=== PATIENT | female | born 1960 | race Caucasian/White ===

== ENCOUNTER 2022-10-05 13:38 | Emergency (ER) | payer BC ==
--- OUTSIDE RECORDS SUMMARY | 2022-10-05 13:43 | XMS REPORT | Continuity of Care Document ---
:1960 Author Organization [facility] Address [address] [place] [address] Care Team Providers Name Role Phone Sonu BERMAN, Carin Jackman Primary Care Physician [phone] GAURAV ASHLEY Attending Clinician Unavailable MAGDY LEWIS Attending Clinician Unavailable [id number] Attending Clinician Unavailable Carin Ziegler MD Attending Clinician [phone] CARIN ZIEGLER Attending Clinician Unavailable CONFERENCE, BDC Attending Clinician Unavailable ROOSEVELT MCLAUGHLIN Attending Clinician Unavailable Payers Payer Name Policy Type Policy Number Effective Date Expiration Date [facility] 2 [id number] 2021 00:00:00 Problems Condition Condition Condition Status Onset Resolution Last Treating Co mments Source Name Details Category Date Date Treatment Clinician Date Morphea Morphea Disease Active 2021-10 Dorothy 2-06 Seybold 00:00: - 00 Externa l Mild Mild Disease Active Dorothy intermitte intermitte 5-18 Se ybold nt asthma nt asthma 00:00: - without without 00 Externa complicati complicati l on on LONDON LONDON Disease Active Overview: Dorothy (obstructi (obstructi 7-26 Formattin Seybold ve sleep ve sleep 00:00: g of this - apnea) apnea) 00 note Externa might be l different from the original. Formattin g of this note might be different from the original. Moderate as per sleep study 11/2017 Statin Statin Disease Active Overview: Dorothy intoleranc intoleranc 3-09 Formattin Seybold e e 00:00: g of this - 00 note Externa might be l different from the original. Formattin g of this note might be different from the original. 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 Formattin g of this note might be different from the original. Overview: LDL goal <130. Family history heart disease in father - bypass at age 65. Had prior negative stress test per her Allergies, Adverse Reactions, Alerts Allergy Allergy Status Severity Reaction(s) Onset Inactive Treating Comm ents Source Name Type Date Date Clinician Demerol Propensi Active Nausea and Jimbo sey ty to Vomiting 5-18 Seybold adverse 00:00: - reaction 00 Externa s l Hmg-Coa- Propensi Active Weight Dorothy R ty to 5-18 gain, Seybold Inhibito adverse 00:00: constipat - rs reaction 00 ion Externa s l Hmg-Coa- Propensi Active Weight Dorothy R ty to 5-18 gain, Seybold Inhibito adverse 00:00: constipat rs reaction 00 ion s Atorvast Propensi Active Other Dorothy atin ty to 2-16 reaction( Seybold adverse 00:00: s): - reaction 00 FatigueCo Exter na s nstipatio l n, fatigue Meperidi Propensi Active Nausea and Ke lsey ne Hcl ty to Vomiting 06 Seybold adverse 00:00: - reaction 00 Externa s l Social History Social Habit Start Date Stop Date Quantity Comments Source History SDOH Dorothy Stevenso ld - Alcohol Frequency Externa l History SDOH Dorothy Vazquezybo ld - Alcohol Std Drinks [employer] al History SDOH Dorothy Vazquezybstewart ld - Alcohol Binge External Exposure to Not sure Dorothy Vazquezybol d SARS-CoV-2 (event) Alcohol intake 2022-09-16 2022-09-16 Current drinker Rhonda Vasquez - 00:00:00 00:00:00 of alcohol External (finding) Tobacco use and 2021-02-26 2021-02-26 Smokeless tobacco Ke andrewbrandyn Seybold - exposure 00:00:00 00:00:00 non-user External Alcohol Comment 2021-02-26 2021-02-26 rare Dorothy fung - 00:00:00 00:00:00 External Sex [birth year] Dorothy fung - 00:00:00 00:00:00 External Smoking Status Start Date Stop Date Source Never smoked tobacco Dorothy Stevens chay - External Medications Ordered Filled Start Stop Current Ordering Indication Dosage Frequency Signature Comments Components Source Medication Medication Date Date Medication? Clinician (SIG) Name Name Multiple 2021-10 Yes 1{capsu Take 1 Miranda ey Vitamin 2-06 le} capsule by Seybol d (Multivitam 11:25: mouth - ins) oral 59 daily Externa Capsule l Ibuprofen 2021-10 Yes 200mg Q.25D Take 200 Ke lsey 200 MG oral 2-06 mg by Seybold Tablet 11:25: mouth - 59 every 6 Externa hours as l needed Cholecalcif 2021-10 Yes 500U Take 500 Ke lsey gayel 2-06 units by Seybold (VITAMIN 11:25: mouth - D-3) 10 MCG 59 Externa (400 UNIT) l oral Tablet Loratadine 2021-10 Yes [id number] 10mg Take 10 mg Dorothy (CLARITIN) 2-06 by mouth Seybo ld 10 MG oral 11:25: daily - tablet 59 Externa l Spacer/Aero 2021-10 Yes by other Ke lsey -Holding 2-06 route [place] Chambers 11:25: - (AeroChambe 59 Externa r MAX l w/Flow-VU) does not apply Misc Levothyroxi 2021-10 Yes [id number] TAKE 1 Dorothy ne Sodium 1-04 TABLET BY Seybo ld 75 MCG oral 00:00: MOUTH - Tablet 00 DAILY Externa l Montelukast 2021-10 Yes [id number] TAKE 1 Dorothy (SINGULAIR) 1-04 TABLET BY Sey bold 10 MG oral 00:00: MOUTH IN - Tablet 00 THE Externa tablet EVENING l Ibuprofen 2021-10 Yes 200mg Q.25D Take 200 Ke lsey 200 MG oral 0-03 mg by Seybold Tablet 10:49: mouth - 42 every 6 Externa hours as l needed Multiple 2021-10 Yes 1{capsu Take 1 Miranda ey Vitamin 0-03 le} capsule by Seybol d (Multivitam 10:48: mouth - ins) oral 06 daily Externa Capsule l Cholecalcif 2021-10 Yes 500U Take 500 Ke lsey gayle 0-03 units by Seybold (VITAMIN 10:48: mouth - D-3) 10 MCG 06 Externa (400 UNIT) l oral Tablet Loratadine 2021-10 Yes [id number] 10mg Take 10 mg Dorothy (CLARITIN) 0-03 by mouth Seybo ld 10 MG oral 10:48: daily - tablet 06 Externa l Spacer/Aero 2021-10 Yes by other Ke lsey -Holding 0-03 route Seybold Chambers 10:48: - (AeroChambe 06 Externa r MAX l w/Flow-VU) does not apply Misc methylPREDN Yes [id number] 1{antonino} Take 1 antonino Dorothy ISolone 4 6-23 by mouth Seybol d MG oral 00:00: See Admin - Tablet 00 Instructio Externa Therapy ns Use as l Pack directed methylPREDN Yes [id number] 1{antonino} Take 1 antonino Dorothy ISolone 4 6-23 by mouth Seybol d MG oral 00:00: See Admin - Tablet 00 Instructio Externa Therapy ns Use as l Pack directed Multiple Yes 1{capsu Take 1 Miranda ey Vitamin 3-28 le} capsule by Seybol d (Multivitam 10:55: mouth ins) oral 43 daily Capsule Ibuprofen Yes 200mg Q.25D Take 200 Ke lsey 200 MG oral 3-28 mg by Seybold Tablet 10:55: mouth 43 every 6 hours as needed Cholecalcif Yes 500U Take 500 Ke lsey gayle 3-28 units by Seybold (VITAMIN 10:55: mouth D-3) 10 MCG 43 (400 UNIT) oral Tablet Loratadine Yes [id number] 10mg Take 10 mg Dorothy (CLARITIN) 3-28 by mouth Seybo ld 10 MG oral 10:55: daily tablet 43 Spacer/Aero Yes by other Ke lsey -Holding 3-28 route Seybold Chambers 10:55: (AeroChambe 43 r MAX w/Flow-VU) does not apply Misc Amoxicillin Yes [id number] 875mg Take 1 Dorothy 875 MG oral 3-28 tablet Seybol d Tablet 00:00: (875 mg 00 total) by mouth in the morning and 1 tablet (875 mg total) in the evening. Multiple 2020-10 Yes 1{capsu Take 1 Miranda ey Vitamin 1-08 le} capsule by Seybol d (Multivitam 09:05: mouth ins) oral 21 daily Capsule Ibuprofen 2020-10 Yes 200mg Q6H Take 200 Jimbo sey 200 MG oral 1-08 mg by Seybold Tablet 09:05: mouth 21 every 6 hours as needed Cholecalcif 2020-10 Yes 500U Take 500 Ke lsey gayle 1-08 units by Seybold (VITAMIN 09:05: mouth D-3) 10 MCG 21 (400 UNIT) oral Tablet Loratadine 2020-10 Yes [id number] 10mg Take 10 mg Dorothy (CLARITIN) 1-08 by mouth Seybo ld 10 MG oral 09:05: daily tablet 21 Spacer/Aero 2020-10 Yes by other Ke lsey -Holding 1-08 route Seybold Chambers 09:05: (AeroChambe 21 r MAX w/Flow-VU) does not apply Misc Albuterol 2020-10 Yes [id number] 1{puff} Q4H Inhale 1-2 Dorothy HFA 108 (90 1-08 puffs into Se ybold Base) 00:00: the lungs MCG/ACT IN 00 every 4 AERS hours as needed for wheezing or shortness of breath Fluticasone 2020-10 Yes [id number] 2{puff} Inhale 2 Dorothy Propionate 1-08 puffs into Sey bold HFA 220 00:00: the lungs MCG/ACT 00 2 times inhalation daily Aerosol Levothyroxi 2020-10 Yes [id number] 75ug Take 1 Dorothy ne Sodium 1-08 tablet (75 Seyb old 75 MCG oral 00:00: mcg total) Tablet 00 by mouth daily Montelukast 2020-10 Yes [id number] 10mg Take 1 Dorothy (SINGULAIR) 1-08 tablet (10 Se ybold 10 MG oral 00:00: mg total) Tablet 00 by mouth tablet every evening Albuterol 2020-10 Yes [id number] 1{puff} Q4H Inhale 1-2 Dorothy HFA 108 (90 1-08 puffs into Se ybold Base) 00:00: the lungs - MCG/ACT IN 00 every 4 [employer] a AERS hours as l needed for wheezing or shortness of breath Fluticasone 2020-10 Yes [id number] 2{puff} Inhale 2 Dorothy Propionate 1-08 puffs into Sey bold HFA 220 00:00: the lungs - MCG/ACT 00 2 times Externa inhalation daily l Aerosol Levothyroxi 2020-10 Yes [id number] 75ug Take 1 Dorothy ne Sodium 1-08 tablet (75 Seyb old 75 MCG oral 00:00: mcg total) - Tablet 00 by mouth Externa daily l Montelukast 2020-10 Yes [id number] 10mg Take 1 Dorothy (SINGULAIR) 1-08 tablet (10 Se ybold 10 MG oral 00:00: mg total) - Tablet 00 by mouth Externa tablet every l evening Albuterol 2020-10 Yes [id number] 1{puff} Q4H Inhale 1-2 Dorothy HFA 108 (90 1-08 puffs into Se ybold Base) 00:00: the lungs - MCG/ACT IN 00 every 4 [employer] a AERS hours as l needed for wheezing or shortness of breath Fluticasone 2020-10 Yes [id number] 2{puff} Inhale 2 Dorothy Propionate 1-08 puffs into Sey bold HFA 220 00:00: the lungs - MCG/ACT 00 2 times Externa inhalation daily l Aerosol Albuterol 2020-10 Yes [id number] 1{puff} Q4H Inhale 1-2 Dorothy HFA 108 (90 1-08 puffs into Se ybold Base) 00:00: the lungs MCG/ACT IN 00 every 4 AERS hours as needed for wheezing or shortness of breath Fluticasone 2020-10 Yes [id number] 2{puff} Inhale 2 Dorothy Propionate 1-08 puffs into Sey bold HFA 220 00:00: the lungs MCG/ACT 00 2 times inhalation daily Aerosol Levothyroxi 2020-10 Yes [id number] 75ug Take 1 Dorothy ne Sodium 1-08 tablet (75 Seyb old 75 MCG oral 00:00: mcg total) Tablet 00 by mouth daily Montelukast 2020-10 Yes [id number] 10mg Take 1 Dorothy (SINGULAIR) 1-08 tablet (10 Se ybold 10 MG oral 00:00: mg total) Tablet 00 by mouth tablet every evening Spacer/Aero 2020-10 Yes by other lsey -Holding 0-11 route Seybold Chambers 11:33: (AeroChambe 28 r MAX w/Flow-VU) does not apply Misc Meloxicam 2020-10 Yes [id number] 7.5mg Take 1 Dorothy 7.5 MG oral 0-11 tablet Seybol d Tablet 00:00: (7.5 mg 00 total) by mouth daily Cyclobenzap 2020-10 Yes [id number] 5mg [id number] Take 1 Dorothy rine HCl 5 0-11 [id number] tablet (5 Seybold MG oral 00:00: 3D mg total) Tablet 00 by mouth 3 times daily as needed for muscle spasms Meloxicam 2020-10- No [id number] 7.5mg Take 1 Dorothy 7.5 MG oral 0-11 08-19 tablet Seybo ld Tablet 00:00: 00:00 (7.5 mg 00 :00 total) by mouth daily Cyclobenzap 2020-10- No [id number] 5mg [id number] Take 1 Dorothy rine HCl 5 0-11 - [id number] tablet (5 Seybold MG oral 00:00: 00:00 3D mg total) Tablet 00 :00 by mouth 3 times daily as needed for muscle spasms Meloxicam 2020-10- No [id number] 7.5mg Take 1 Dorothy 7.5 MG oral 0-11 10-11 tablet Seybo ld Tablet 00:00: 00:00 (7.5 mg 00 :00 total) by mouth daily Cyclobenzap 2020-10- No [id number] 5mg Q8H Take 1 Dorothy rine HCl 5 0-11 10-11 tablet (5 Sey bold MG oral 00:00: 00:00 mg total) Tablet 00 :00 by mouth every 8 hours as needed for muscle spasms Multiple Yes 1{capsu Take 1 Miranda ey Vitamin 5-18 le} capsule by Seybol d (Multivitam 10:13: mouth ins) oral 21 daily Capsule Ibuprofen Yes 200mg Q6H Take 200 Jimbo sey 200 MG oral 5-18 mg by Seybold Tablet 10:13: mouth 21 every 6 hours as needed Cholecalcif Yes 500U Take 500 Ke lsey gayle 5-18 units by Seybold (VITAMIN 10:13: mouth D-3) 10 MCG 21 (400 UNIT) oral Tablet Loratadine Yes [id number] 10mg Take 10 mg Dorothy (CLARITIN) 5-18 by mouth Seybo ld 10 MG oral 10:13: daily tablet 21 Albuterol Yes [id number] 1{puff} Inhale 1-2 Dorothy HFA 108 (90 4-09 puffs into Se ybold Base) 00:00: the lungs MCG/ACT IN 00 as needed AERS Montelukast 0 Yes [id number] 10mg Take 10 mg Dorothy (SINGULAIR) 4-09 by mouth Seyb old 10 MG oral 00:00: every Tablet 00 evening tablet Levothyroxi 0 Yes [id number] 75ug Take 75 Dorothy ne Sodium 4-09 mcg by Seybold 75 MCG oral 00:00: mouth Tablet 00 daily Albuterol 0 2020- No [id number] 1{puff} Inhale 1-2 Dorothy HFA 108 (90 4-09 11-08 puffs into S eybold Base) 00:00: 00:00 the lungs MCG/ACT IN 00 :00 as needed AERS Montelukast 0 2020- No [id number] 10mg Take 10 mg Dorothy (SINGULAIR) 4-09 11-08 by mouth Sey bold 10 MG oral 00:00: 00:00 every Tablet 00 :00 evening tablet Levothyroxi 2020- No [id number] 75ug Take 75 Dorothy ne Sodium 01-18 11-08 mcg by Seybold 75 MCG oral 00:00: 00:00 mouth Tablet 00 :00 daily Fluticasone 2019-10 Yes [id number] 2{puff} Inhale 2 Dorothy Propionate 0-14 puffs into Sey bold HFA 220 00:00: the lungs MCG/ACT 00 2 times inhalation daily Aerosol Fluticasone 2019-10- No [id number] 2{puff} Inhale 2 Dorothy Propionate 0-14 11-08 puffs into Se ybold HFA 220 00:00: 00:00 the lungs MCG/ACT 00 :00 2 times inhalation daily Aerosol Immunizations Ordered Immunization Filled Immunization Date Status Commen ts Source Name Name Influenza Virus 2022-07-14 Completed Dorothy Se fung Vaccine, age 6 months 00:00:00 - E xternal and up Influenza Virus 2022-07-14 Completed Dorothy Se fung Vaccine, age 6 months 00:00:00 - E xternal and up Covid-19 Vaccine 2022-05-22 Completed Dorothy suarez (Fantom), Mrna-lnp, 00:00:00 - Ext ernal Mario Alberto Protein, Pf, 30mcg/0.3ml,IM Covid-19 Vaccine 2022-05-22 Completed Dorothy suarez (Fantom), Mrna-lnp, 00:00:00 - Ext ernal Mario Alberto Protein, Pf, 30mcg/0.3ml,IM Covid-19 Vaccine 2021-09-17 Completed Dorothy suarez (Fantom), Mrna-lnp, 00:00:00 Mario Alberto Protein, Pf, 30mcg/0.3ml,IM Covid-19 Vaccine 2021-09-17 Completed Dorothy suarez (Fantom), Mrna-lnp, 00:00:00 - Ext ernal Mario Alberto Protein, Pf, 30mcg/0.3ml,IM Covid-19 Vaccine 2021-09-17 Completed Dorothy suarez (Fantom), Mrna-lnp, 00:00:00 - Ext ernal Mario Alberto Protein, Pf, 30mcg/0.3ml,IM Influenza Virus 2021-08-07 Completed Dorothy Se ybold Vaccine, age 6 months 00:00:00 and up Influenza Virus 2021-08-07 Completed Dorothy Se ybold Vaccine, age 6 months 00:00:00 and up Influenza Virus 2021-08-07 Completed Dorothy Se ybold Vaccine, age 6 months 00:00:00 - E xternal and up Influenza Virus 2021-08-07 Completed Dorothy Se ybold Vaccine, No Preserv, 00:00:00 - Ex ternal age 6 months and up Influenza Virus 2021-08-07 Completed Dorothy Se ybold Vaccine, age 6 months 00:00:00 - E xternal and up Influenza Virus 2021-08-07 Completed Dorothy Se ybold Vaccine, No Preserv, 00:00:00 - Ex ternal age 6 months and up Shingles IM 2021-04-16 Completed Dorothy Seybol d (Shingrix) 00:00:00 - External Shingles IM 2021-04-16 Completed Dorothy Vazquezybol d (Shingrix) 00:00:00 - External Tdap- (Boostrix, 2021-02-05 Completed Dorothy Oconnell eybold Adacel) 00:00:00 Shingles IM 2021-02-05 Completed Dorothy Vazquezybol d (Shingrix) 00:00:00 Tdap- (Boostrix, 2021-02-05 Completed Dorothy Oconnell eybold Adacel) 00:00:00 - External Shingles IM 2021-02-05 Completed Dorothy Vazquezybol d (Shingrix) 00:00:00 - External Tdap- (Boostrix, 2021-02-05 Completed Dorothy Oconnell eybold Adacel) 00:00:00 - External Shingles IM 2021-02-05 Completed Dorothy Seybol d (Shingrix) 00:00:00 - External Tdap- (Boostrix, 2021-02-05 Completed Dorothy S eybold Adacel) 00:00:00 Shingles IM 2021-02-05 Completed Dorothy Seybol d (Shingrix) 00:00:00 Tdap- (Boostrix, 2021-02-05 Completed Dorothy Oconnell eybold Adacel) 00:00:00 Shingles IM 2021-02-05 Completed Dorothy Vaz d (Shingrix) 00:00:00 Tdap- (Boostrix, 2021-02-03 Completed Dorothy suarez Adacel) 00:00:00 - External Shingles IM 2021-02-03 Completed Dorothy Stevensol d (Shingrix) 00:00:00 - External Tdap- (Boostrix, 2021-02-03 Completed Dorothy suarez Adacel) 00:00:00 - External Shingles IM 2021-02-03 Completed Dorothy Vaz d (Shingrix) 00:00:00 - External Covid-19 Vaccine 2021-01-06 Completed Dorothy suarez (Moderna), Mrna-lnp, 00:00:00 Mario Alberto Protein, Pf, 100 Mcg/0.5ml,IM Covid-19 Vaccine 2021-01-06 Completed Dorothy suarez Moderna (Spikevax), 00:00:00 Mrna-lnp, Mario Alberto Protein, Pf Covid-19 Vaccine 2021-01-06 Completed Dorothy suarez Moderna (Spikevax), 00:00:00 - Ext ernal Mrna-lnp, Mario Alberto Protein, Pf Covid-19 Vaccine 2021-01-06 Completed Dorothy suarez Moderna (Spikevax), 00:00:00 - Ext ernal Mrna-lnp, Mario Alberto Protein, Pf Covid-19 Vaccine 2021-01-06 Completed Dorothy suarez (Moderna), Mrna-lnp, 00:00:00 Mario Alberto Protein, Pf, 100 Mcg/0.5ml,IM Covid-19 Vaccine 2021-01-06 Completed Dorothy suarez (Moderna), Mrna-lnp, 00:00:00 Mario Alberto Protein, Pf, 100 Mcg/0.5ml,IM Covid-19 Vaccine 2021-01-06 Completed Dorothy suarez (Moderna), Mrna-lnp, 00:00:00 Mario Alberto Protein, Pf, 100 Mcg/0.5ml,IM Covid-19 Vaccine 2020-12-09 Completed Dorothy suarez (Moderna), Mrna-lnp, 00:00:00 Mario Alberto Protein, Pf, 100 Mcg/0.5ml,IM Covid-19 Vaccine 2020-12-09 Completed Dorothy buchananld Moderna (Spikevax), 00:00:00 Mrna-lnp, Mario Alberto Protein, Pf Covid-19 Vaccine 2020-12-09 Completed Dorothy Oconnell eybold Moderna (Spikevax), 00:00:00 - Ext ernal Mrna-lnp, Mario Alberto Protein, Pf Covid-19 Vaccine 2020-12-09 Completed Dorothy Oconnell eybold Moderna (Spikevax), 00:00:00 - Ext ernal Mrna-lnp, Mario Alberto Protein, Pf Covid-19 Vaccine 2020-12-09 Completed Dorothy ahumadabold (Moderna), Mrna-lnp, 00:00:00 Mario Alberto Protein, Pf, 100 Mcg/0.5ml,IM Covid-19 Vaccine 2020-12-09 Completed Dorothy ahumadabold (Moderna), Mrna-lnp, 00:00:00 Mario Alberto Protein, Pf, 100 Mcg/0.5ml,IM Covid-19 Vaccine 2020-12-09 Completed Dorothy ahumadabold (Moderna), Mrna-lnp, 00:00:00 Mario Alberto Protein, Pf, 100 Mcg/0.5ml,IM Pneumococcal Vaccine, 2019-04-01 Completed Jimbo sey Seybold Polysaccharide 00:00:00 Pneumococcal Vaccine, 2019-04-01 Completed Jimbo sey Seybold Polysaccharide 00:00:00 Pneumococcal Vaccine, 2019-04-01 Completed Jimbo sey Seybold Polysaccharide 00:00:00 - External Pneumococcal Vaccine, 2019-04-01 Completed Jimbo sey Seybold Polysaccharide 00:00:00 - External Pneumococcal Vaccine, 2019-04-01 Completed Jimbo sey Seybold Polysaccharide 00:00:00 Influenza Virus 2018-06-29 Completed Dorothy Se ybold Vaccine, Split, up to 00:00:00 age 3 Influenza Virus 2018-06-29 Completed Dorothy Se ybold Vaccine, Unspecified 00:00:00 Formulation Influenza Virus 2018-06-29 Completed Dorothy Se ybold Vaccine, No Preserv, 00:00:00 age 6 months and up Influenza Virus 2018-06-29 Completed Dorothy Se ybold Vaccine, Split, up to 00:00:00 age 3 Influenza Virus 2018-06-29 Completed Dorothy Se ybold Vaccine, Unspecified 00:00:00 Formulation Influenza Virus 2018-06-29 Completed Dorohty Se ybold Vaccine, No Preserv, 00:00:00 age 6 months and up Influenza Virus 2018-06-29 Completed Dorothy Se ybold Vaccine, Split, up to 00:00:00 - E xternal age 3 Influenza Virus 2018-06-29 Completed Dorothy Se ybold Vaccine, Unspecified 00:00:00 - Ex ternal Formulation Influenza Virus 2018-06-29 Completed Dorothy Se ybold Vaccine, No Preserv, 00:00:00 - Ex ternal age 6 months and up Influenza Virus 2018-06-29 Completed Dorothy Se ybold Vaccine, Split, up to 00:00:00 - E xternal age 3 Influenza Virus 2018-06-29 Completed Dorothy Se ybold Vaccine, Unspecified 00:00:00 - Ex ternal Formulation Influenza Virus 2018-06-29 Completed Dorothy Se ybold Vaccine, No Preserv, 00:00:00 - Ex ternal age 6 months and up Influenza Virus 2018-06-29 Completed Dorothy Se ybold Vaccine, Split, up to 00:00:00 age 3 Influenza Virus 2018-06-29 Completed Dorothy Se ybold Vaccine, Unspecified 00:00:00 Formulation Influenza Virus 2018-06-29 Completed Dorothy Se ybold Vaccine, No Preserv, 00:00:00 age 6 months and up Influenza, Seasonal, 2017-09-19 Completed Miranda ey Seybold Injectable, 00:00:00 Preservative Free Influenza, Seasonal, 2017-09-19 Completed Miranda ey Seybold Injectable, 00:00:00 Preservative Free Influenza, Seasonal, 2017-09-19 Completed Miranda ey Seybold Injectable, 00:00:00 - External Preservative Free Influenza, Seasonal, 2017-09-19 Completed Miranda ey Seybold Injectable, 00:00:00 - External Preservative Free Influenza, Seasonal, 2017-09-19 Completed Miranda ey Seybold Injectable, 00:00:00 Preservative Free Influenza, Seasonal, 2016-07-19 Completed Miranda ey Seybold Injectable 00:00:00 Influenza Virus 2016-07-19 Completed Dorothy Se ybold Vaccine, Unspecified 00:00:00 Formulation Influenza, Seasonal, 2016-07-19 Completed Miranda ey Seybold Injectable 00:00:00 Influenza Virus 2016-07-19 Completed Dorothy Se ybold Vaccine, Unspecified 00:00:00 Formulation Influenza, Seasonal, 2016-07-19 Completed Miranda ey Seybold Injectable 00:00:00 - External Influenza Virus 2016-07-19 Completed Dorothy Se ybold Vaccine, Unspecified 00:00:00 - Ex ternal Formulation Influenza, Seasonal, 2016-07-19 Completed Miranda ey Seybold Injectable 00:00:00 - External Influenza Virus 2016-07-19 Completed Dorothy Se ybold Vaccine, Unspecified 00:00:00 - Ex ternal Formulation Influenza, Seasonal, 2016-07-19 Completed Miranda ey Seybold Injectable 00:00:00 Influenza Virus 2016-07-19 Completed Dorothy Se ybold Vaccine, Unspecified 00:00:00 Formulation Influenza, Seasonal, 2015-08-22 Completed Miranda ey Seybold Injectable, 00:00:00 Preservative Free Influenza Virus 2015-08-22 Completed Dorothy Se ybold Vaccine, No Preserv, 00:00:00 age 6 months and up Influenza Virus 2015-08-22 Completed Dorothy Se ybold Vaccine, Unspecified 00:00:00 Formulation Influenza, Seasonal, 2015-08-22 Completed Miranda ey Seybold Injectable, 00:00:00 Preservative Free Influenza Virus 2015-08-22 Completed Dorothy Se ybold Vaccine, No Preserv, 00:00:00 age 6 months and up Influenza Virus 2015-08-22 Completed Dorothy Se ybold Vaccine, Unspecified 00:00:00 Formulation Influenza, Seasonal, 2015-08-22 Completed Miranda ey Seybold Injectable, 00:00:00 - External Preservative Free Influenza Virus 2015-08-22 Completed Dorothy Se ybold Vaccine, No Preserv, 00:00:00 - Ex ternal age 6 months and up Influenza Virus 2015-08-22 Completed Dorothy Se ybold Vaccine, Unspecified 00:00:00 - Ex ternal Formulation Influenza, Seasonal, 2015-08-22 Completed Miranda ey Seybold Injectable, 00:00:00 - External Preservative Free Influenza Virus 2015-08-22 Completed Dorothy Se ybold Vaccine, No Preserv, 00:00:00 - Ex ternal age 6 months and up Influenza Virus 2015-08-22 Completed Dorothy Se ybold Vaccine, Unspecified 00:00:00 - Ex ternal Formulation Influenza, Seasonal, 2015-08-22 Completed Miranda ey Seybold Injectable, 00:00:00 Preservative Free Influenza Virus 2015-08-22 Completed Dorothy Vazquez ybchay Vaccine, No Preserv, 00:00:00 age 6 months and up Influenza Virus 2015-08-22 Completed Dorothy Vazquez ybchay Vaccine, Unspecified 00:00:00 Formulation Tdap- (Boostrix, 2010-02-25 Completed Dorothy Brandyn eybold Adacel) 00:00:00 Tdap- (Boostrix, 2010-02-25 Completed Dorothy S eybold Adacel) 00:00:00 Tdap- (Boostrix, 2010-02-25 Completed Dorothy S eybold Adacel) 00:00:00 - External Tdap- (Boostrix, 2010-02-25 Completed Dorothy S eybold Adacel) 00:00:00 - External Tdap- (Boostrix, 2010-02-25 Completed Dorothy S eybold Adacel) 00:00:00 Vital Signs Vital Name Observation Time Observation Value Comments Source Systolic blood 2022-09-16 17:26:00 116 mm[Hg] Dorothy Seybold - pressure External Diastolic blood 2022-09-16 17:26:00 72 mm[Hg] Kelse y Seybold - pressure External Heart rate 2022-09-16 17:26:00 80 /min Dorothy S eybold - External Body temperature 2022-09-16 17:26:00 36.61 Faviola Miranda ey Seybold - External Respiratory rate 2022-09-16 17:26:00 16 /min Miranda ey Seybold - External Body height 2022-09-16 17:26:00 147.3 cm Dorothy S eybold - External Systolic blood 2022-07-14 15:46:00 118 mm[Hg] Dorothy Seybold - pressure External Diastolic blood 2022-07-14 15:46:00 74 mm[Hg] Kelse y Seybold - pressure External Heart rate 2022-07-14 15:46:00 76 /min Dorothy S eybold - External Body temperature 2022-07-14 15:46:00 36 Faviola Miranda ey Seybold - External Respiratory rate 2022-07-14 15:46:00 18 /min Miranda ey Seybold - External Body height 2022-07-14 15:46:00 147.3 cm Dorothy S eybold - External Systolic blood 2022-01-06 15:57:00 127 mm[Hg] Dorothy Seybold pressure Diastolic blood 2022-01-06 15:57:00 82 mm[Hg] Kelse y Seybold pressure Heart rate 2022-01-06 15:57:00 75 /min Odrothy S eybold Body temperature 2022-01-06 15:57:00 36.22 Faviola Miranda ey Seybold Body height 2022-01-06 15:57:00 147.3 cm Dorothy S eybold Systolic blood 2021-08-19 15:03:00 130 mm[Hg] Dorothy Seybold pressure Diastolic blood 2021-08-19 15:03:00 74 mm[Hg] Kelse y Seybold pressure Heart rate 2021-08-19 15:03:00 84 /min Dorothy S eybold Body temperature 2021-08-19 15:03:00 36.44 Faviola Miranda ey Seybold Respiratory rate 2021-08-19 15:03:00 14 /min Miranda ey Seybold Body height 2021-08-19 15:03:00 147.3 cm Dorothy S eybold Systolic blood 2021-07-22 16:31:00 124 mm[Hg] Dorothy Seybold pressure Diastolic blood 2021-07-22 16:31:00 82 mm[Hg] Kelse y Seybold pressure Heart rate 2021-07-22 16:31:00 82 /min Dorothy S eybold Body temperature 2021-07-22 16:31:00 36.56 Faviola Miranda ey Seybold Respiratory rate 2021-07-22 16:31:00 14 /min Miranda ey Seybold Body height 2021-07-22 16:31:00 147.3 cm Dorothy S eybold Oxygen saturation in 2021-07-22 16:31:00 98 /min Dortohy Seybold Arterial blood by Pulse oximetry Procedures This patient has no known procedures. Encounters Start End Encounter Admission Attending Care Care Encounter Source Date/Time Date/Time Type Type Clinicians Facility Department ID 2022-09-16 2022-09-16 Outpatient GABI DOROTHY SIDDIQI [id number] Dorothy 11:30:00 11:30:00 GAURAV Seybol d 2022-09-08 2022-09-08 Outpatient DEBBIE DOROTHY SIDDIQI [id number] Dorothy 10:30:00 10:30:00 , MAGDY Seyb old 2022-08-06 2022-08-06 Outpatient DOROTHY SIDDIQI [id number] Dorothy 15:15:00 15:15:00 Seybol d 2022-07-29 2022-07-29 Outpatient LAB90 DOROTHY SIDDIQI [id number] Dorothy 11:10:00 11:10:00 Seybol d 2022-07-14 2022-07-14 Outpatient DEBBIE DOROTHY SIDDIQI [id number] Dorothy 11:00:00 11:00:00 , MAGDY Seyb old 2022-04-03 2022-04-03 Office Cooper Ziegler [id number] Dorothy 16:00:00 16:15:00 Visit Carin Lewis [id number] Se kenton Jackman [id number] 2022-03-25 2022-03-25 Outpatient DOROTHY SIDDIQI [id number] Dorothy 13:00:00 13:00:00 Seybol d 2022-03-25 2022-03-25 Outpatient DOROTHY SIDDIQI [id number] Dorothy 10:40:00 10:40:00 Seybol d 2022-03-25 2022-03-25 Outpatient DOROTHY ZIEGLER [id number] Dorothy 00:00:00 00:00:00 CARIN Seybol d 2022-03-24 2022-03-24 Outpatient DOROTHY ZIEGLER [id number] Dorothy 00:00:00 00:00:00 CARIN Seybol d 2022-03-13 2022-03-13 Outpatient DOROTHY ZIEGLER [id number] Dorothy 00:00:00 00:00:00 CARIN Seybol d 2022-02-17 2022-02-17 Outpatient DOROTHY ZIEGLER [id number] Dorothy 09:00:00 09:00:00 CARIN Seybol d 2022-02-10 2022-02-10 Outpatient DOROTHY ZIEGLER [id number] Dorothy 00:00:00 00:00:00 CARIN Seybol d 2022-01-27 2022-01-27 Outpatient DOROTHY ZIEGLER [id number] Dorothy 00:00:00 00:00:00 CARIN Seybol d 2022-01-16 2022-01-16 Outpatient DOROTHY ZIEGLER [id number] Dorothy 00:00:00 00:00:00 CARIN Seybol d 2022-01-06 2022-01-06 Office Cooper Ziegler [id number] Dorothy 11:00:00 11:15:00 Visit Carin Lewis [id number] Se lonniechay Jackman [id number] 2021-11-08 2021-11-08 Outpatient DOROTHY ZIEGLER [id number] Dorothy 00:00:00 00:00:00 CARIN Seybol d 2021-09-18 2021-09-18 Outpatient DOROTHY ZIEGLER [id number] Dorothy 00:00:00 00:00:00 CARIN Seybol d 2021-09-02 2021-09-02 Outpatient DOROTHY ZIEGLER [id number] Dorothy 00:00:00 00:00:00 CARIN Seybol d 2021-09-02 2021-09-02 Outpatient DOROTHY ZIEGLER [id number] Dorothy 00:00:00 00:00:00 CARIN Seybol d 2021-08-30 2021-08-30 Outpatient LAB90 DOROTHY SIDDIQI [id number] Dorothy 09:15:00 09:15:00 Seybol d 2021-08-19 2021-08-19 Outpatient LAB90 DOROTHY SIDDIQI [id number] Dorothy 09:45:00 09:45:00 Seybol d 2021-08-19 2021-08-19 Office Cooper Ziegler [id number] Dorothy 08:50:07 09:20:07 Visit Carin Lewis [id number] Se ybchay Somogyi [id number] 2021-07-25 2021-07-25 Outpatient DOROTHY SIDDIQI [id number] Dorothy 10:45:00 10:45:00 Seybol d 2021-07-24 2021-07-24 Outpatient DOROTHY ZIEGLER [id number] Dorothy 00:00:00 00:00:00 CARIN Seybol d 2021-07-22 2021-07-22 Office [place] [id number] Dorothy 11:24:06 11:54:06 Visit Carin Lewis [id number] Se kenton Somogyi [id number] 2021-07-02 2021-07-02 Outpatient DOROTHY ROY [id number] Dorothy 00:00:00 00:00:00 BDC Seybol d 2021-07-02 2021-07-02 Outpatient MCLAUGHLINDOROTHY [id number] Dorothy 00:00:00 00:00:00 KATTERRANCE Seyb old 2021-06-27 2021-06-27 Outpatient DOROTHY SIDDIQI [id number] Dorothy 09:40:00 09:40:00 Seybol d 2021-06-27 2021-06-27 Outpatient DOROTHY SIDDIQI [id number] Dorothy 09:35:00 09:35:00 Seybol d 2021-06-27 2021-06-27 Outpatient MCLAUGHLINDOROTHY [id number] Dorothy 00:00:00 00:00:00 KATHERYNN Seyb old 2021-06-21 2021-06-21 Outpatient DOROTHY SIDDIQI [id number] Dorothy 11:00:00 11:00:00 Seybol d 2021-02-26 2021-02-26 Outpatient DOROTHY MCLAUGHLIN [id number] Dorothy 09:15:00 09:15:00 KATHERRISHI Seyb old Results This patient has no known results.
--- NOTE | 2022-10-05 14:18 | ER ---
Nurse's Notes [facility] Name: Carin Haq Age: 62 yrs Sex: Female : 1960 Arrival Date: 10/05/2022 Time: 13:44 Bed 25 [facility] MD: Diagnosis: Unspecified open wound of right thumb without damage to nail, initial encounter;Laceration without foreign body of other finger without damage to nail-right pointer and middle fingers Presentation: 10/05 13:56 Complicating Factors: There are no complicating factors for this patient. Initial em6 Sepsis Screen: Does the patient meet any 2 criteria? No. Patient's initial sepsis screen is negative. Does the patient have a suspected source of infection? No. Patient's initial sepsis screen is negative. Risk Assessment: Do you want to hurt yourself or someone else? Patient reports no desire to harm self or others. 13:58 Chief complaint: Right thumb laceration from clean food slicer. Coronavirus screen: At hb this time, the client does not indicate any symptoms associated with coronavirus-19. Ebola Screen: No symptoms or risks identified at this time. Onset of symptoms was October 05, 2022. 13:58 Method Of Arrival: Ambulatory hb 13:58 Acuity: ALMITA 4 hb Historical: - Allergies: 14:25 No Known Allergies; em6 - PMHx: 14:25 None; em6 - Immunization history:: Adult Immunizations unknown. - Social history:: Smoking status: unknown. Screenin:56 [facility] ED Fall Risk Assessment (Adult) History of falling in the last 3 months, em6 including since admission No falls in past 3 months (0 pts) Confusion or Disorientation No (0 pts) Intoxicated or Sedated No (0 pts) Impaired Gait No (0 pts) Mobility Assist Device Used No (0 pt) Altered Elimination No (0 pt) Score/Fall Risk Level 0 - 2 = Low Risk Oriented to surroundings, Maintained a safe environment, Educated pt \T\ family on fall prevention, incl call for assistance when getting out of bed, Assessed \T\ reinforced patient's understanding of fall precautions, Provided non-skid footwear, Hourly rounding (assess needs \T\ fall precautionary measures) done, Used ambulatory aids as needed (educated on \T\ assisted with), Used gait belt as appropriate. Abuse screen: Denies threats or abuse. Nutritional screening: No deficits noted. Tuberculosis screening: No symptoms or risk factors identified. Assessment: 13:56 General: Appears comfortable, Behavior is cooperative. Pain: Complains of pain in right em6 hand Pain does not radiate. Pain currently is 4 out of 10 on a pain scale. Neuro: Level of Consciousness is awake, alert, obeys commands, Oriented to person, place, time, situation. Cardiovascular: Patient's skin is warm and dry. Respiratory: Airway is patent Respiratory effort is even, unlabored, Respiratory pattern is regular, symmetrical. GI: No signs and/or symptoms were reported involving the gastrointestinal system. : No signs and/or symptoms were reported regarding the genitourinary system. EENT: No signs and/or symptoms were reported regarding the EENT system. Derm: No signs and/or symptoms reported regarding the dermatologic system. Musculoskeletal: Circulation, motion, and sensation intact. Capillary refill < 3 seconds, Range of motion: intact in all extremities. Injury Description: Laceration sustained to palmar aspect of distal phalanx of right index finger and palmar aspect of distal phalanx of right thumb is clean, 0.5 to 2.5 cm long, bleeding moderately. Vital Signs: 13:58 BP 148 / 88; Pulse 86; Resp 16; Temp 97.7(TE); Pulse Ox 100% on R/A; Weight 83.91 kg; hb Height 4 ft. 11 in. (149.86 cm); Pain 8/10; 13:58 Body Mass Index 37.37 (83.91 kg, 149.86 cm) hb ED Course: 13:44 Patient arrived in ED. as 13:51 Ghulam Linda PA is PHCP. cp 13:51 Ghulam Kearns MD is Attending Physician. cp 13:56 Joy Leblanc, GRAHAM is Primary Nurse. em6 13:56 Placed in gown. Bed in low position. Call light in reach. Pulse ox on. NIBP on. Warm em6 blanket given. 14:00 Triage completed. hb 14:00 Arm band placed on. hb 14:24 No provider procedures requiring assistance completed. Patient did not have IV access em6 during this emergency room visit. Administered Medications: No medications were administered Medication: 14:24 VIS not applicable for this client. em6 Outcome: 14:17 Discharge ordered by . cp 14:24 Discharged to home ambulatory, with family. em6 14:24 Condition: stable 14:24 Discharge instructions given to patient, family, Instructed on discharge instructions, follow up and referral plans. medication usage, wound care, Demonstrated understanding of instructions, follow-up care, medications, wound care, Prescriptions given X 1. 14:25 Patient left the ED. em6 Signatures: Brina Leblanc Corey, PA PA cp Baxter, Heather, RN RN Joy Leblanc RN RN em6 Corrections: (The following items were deleted from the chart) 14:24 14:00 Allergies: No Known Allergies; em6
--- NOTE | 2022-10-05 14:18 | EDPHYS ---
Physician Documentation [facility] Name: Carin Haq Age: 62 yrs Sex: Female : 1960 Arrival Date: 10/05/2022 Time: 13:44 Bed 25 Private MD: ED Physician Ghulam Kearns HPI: 10/05 14:03 This 62 yrs old Female presents to ER via Ambulatory with complaints of Laceration - cp thumb. Historical: - Allergies: 14:25 No Known Allergies; em6 - PMHx: 14:25 None; em6 - Immunization history:: Adult Immunizations unknown. - Social history:: Smoking status: unknown. ROS: 14:05 Constitutional: Negative for fever. cp 14:05 Skin: Positive for avulsion, laceration(s), of the right hand. cp 14:05 Neuro: Negative for altered mental status, headache, numbness, tingling, weakness. 14:05 All other systems are negative. Exam: 14:10 Head/Face: Normocephalic, atraumatic. cp 14:10 Constitutional: The patient appears in no acute distress, alert, awake, non-toxic, well developed, well nourished. 14:10 Cardiovascular: Rate: normal. 14:10 Respiratory: the patient does not display signs of respiratory distress, Respirations: normal, no use of accessory muscles, no retractions, labored breathing, is not present. 14:10 Skin: injury, avulsion(s), A moderate sized of the radial side of right thumb, extends from proximal phalanx to distal phalanx with mild bleeding, no signs of tendon injury and no signs of bony involement, laceration(s), of the middle phalanx right pointer finger and distal phalanx right middle finger, that can be described as clean, no foreign body, linear, without bleeding, superficial. 14:10 Musculoskeletal/extremity: Extremities: noted in the right hand: ROM: full active range cp of motion, Perfusion: the extremity is normally perfused throughout, the right hand Sensation intact. Vital Signs: 13:58 BP 148 / 88; Pulse 86; Resp 16; Temp 97.7(TE); Pulse Ox 100% on R/A; Weight 83.91 kg; hb Height 4 ft. 11 in. (149.86 cm); Pain 8/10; 13:58 Body Mass Index 37.37 (83.91 kg, 149.86 cm) MDM: 13:55 Patient medically screened. [facility] 14:15 Data reviewed: vital signs, nurses notes, and as a result, I will discharge patient. cp Counseling: I had a detailed discussion with the patient and/or guardian regarding: the historical points, exam findings, and any diagnostic results supporting the discharge/admit diagnosis, to return to the emergency department if symptoms worsen or persist or if there are any questions or concerns that arise at home, wound care. 10/05 14:03 Order name: Wound dressing: apply surgiseal to thumb laceration; Complete Time: 14:19 cp Administered Medications: No medications were administered Disposition Summary: 10/05/22 14:17 Discharge Ordered Location: Home cp Problem: new cp Symptoms: have improved cp Condition: Stable cp Diagnosis - Unspecified open wound of right thumb without damage to nail, initial encounter cp - Laceration without foreign body of other finger without damage to nail - right cp pointer and middle fingers Followup: cp - With: Private Physician - When: 48 Hours - Reason: Worsening of condition Discharge Instructions: - Discharge Summary Sheet cp - Nonsutured Laceration Care cp Forms: - Medication Reconciliation Form cp - Thank You Letter cp - Antibiotic Education cp - Prescription Opioid Use cp Prescriptions: - Cephalexin 500 mg Oral Capsule - take 1 capsule by ORAL route every 8 hours for 10 days; 30 capsule; Refills: 0, cp Product Selection Permitted Signatures: Ghulam Kearns MD MD cha Page, Corey, PA PA cp Baxter, Heather, RN RN hb Martinez, Erika, RN RN em6 Corrections: (The following items were deleted from the chart) 14:24 14:00 Allergies: No Known Allergies; em6
[2022-10-05 14:30] VITALS: BP 148/88; TEMP 97.7; O2SAT 100
== END 2022-10-05 14:25 | disposition home or self-care (01) ==
LOC: ER 13:38
DX: S61.011A Laceration without foreign body of right thumb without damage to nail, initial encounter (principal); S61.210A Laceration without foreign body of right index finger without damage to nail, initial encounter; S61.212A Laceration without foreign body of right middle finger without damage to nail, initial encounter
CPT/HCPCS: 99283